=== PATIENT | female | born 1960 | race Caucasian/White ===

== ENCOUNTER 2020-09-01 10:38 | Emergency (ER) | payer BC ==
[2020-09-01] MEDS ORDERED: MEDROL DOSEPAK 24 MG PO (13:32)
[2020-09-01] MEDS ORDERED: NAPROXEN500 MG PO (13:32)
[2020-09-01] MEDS ORDERED: NORFLEX 100 MG100 MG PO (13:32)
== END 2020-09-01 13:45 | disposition home or self-care (01) ==
LOC: ER1 10:38
DX: M51.36 Other intervertebral disc degeneration, lumbar region (principal); I10 Essential (primary) hypertension; Z88.0 Allergy status to penicillin
CPT/HCPCS: 72131; 99283

== ENCOUNTER 2020-09-26 17:49 | Emergency (ER) | payer BC ==
[~2020-09-26 17:49] MED LIST: MEDROL DOSEPAK 24 MG PO; NAPROXEN500 MG PO; NORFLEX 100 MG100 MG PO
[2020-09-26 21:27] LABS: HEMOGLOBIN 12.4 gm/dl (12.3-15.3); RED BLOOD COUNT 4.22 M/UL (4.00-5.10); WHITE BLOOD COUNT 4.9 K/UL (4.5-11.0)
[2020-09-27] MEDS ORDERED: XARELTO 15 MG T15 MG PO (13:21)
== END 2020-09-26 22:35 | disposition home or self-care (01) ==
LOC: ER1 17:49
PROVIDERS: Physician Assistant Medical
DX: M79.661 Pain in right lower leg (principal); R79.1 Abnormal coagulation profile; I10 Essential (primary) hypertension; Z88.0 Allergy status to penicillin
CPT/HCPCS: 80053; 85025; 85379; 85610; 96372; 99283; J1650

== ENCOUNTER 2020-09-27 11:09 | Emergency (ER) | payer BC ==
[~2020-09-27 11:09] MED LIST changes: -XARELTO 15 MG T15 MG PO
[2020-09-27] MEDS ORDERED: XARELTO 15 MG T15 MG PO (13:21)
[2020-09-29 00:09] LABS: PROTEIN C-FUNCTIONAL 147 % (73-180); PROTEIN S-FUNCTIONAL 106 % (63-140)
== END 2020-09-27 13:49 | disposition home or self-care (01) ==
LOC: ER1 11:09
PROVIDERS: Physician Assistant
DX: I82.441 Acute embolism and thrombosis of right tibial vein (principal); I10 Essential (primary) hypertension; Z88.0 Allergy status to penicillin
CPT/HCPCS: 81241; 93971; 99283

== ENCOUNTER → 2020-09-27 | Outpatient (CLI) | payer BC ==
[~2020-09-27] MED LIST changes: +XARELTO 15 MG T15 MG PO
== END ==
LOC: US 10:16
DX: M79.661 Pain in right lower leg (principal); R79.89 Other specified abnormal findings of blood chemistry; I82.441 Acute embolism and thrombosis of right tibial vein
CPT/HCPCS: 93971

== ENCOUNTER → 2020-10-04 | Outpatient (CLI) | payer BC ==
[~2020-10-04] MED LIST changes: +XARELTO 15 MG T15 MG PO
== END ==
LOC: KOH-I 15:30 → EMI 15:38
DX: M54.9 Dorsalgia, unspecified (principal); M51.27 Other intervertebral disc displacement, lumbosacral region; M48.061 Spinal stenosis, lumbar region without neurogenic claudication
CPT/HCPCS: 72148

== ENCOUNTER → 2021-05-03 | Outpatient (CLI) | payer BC ==
[2021-05-03 10:27] LABS: BUN/CREATININE RATIO 18 (0-10)
== END ==
LOC: MRI 09:25
PROVIDERS: Internal Medicine
DX: M25.571 Pain in right ankle and joints of right foot (principal); M25.471 Effusion, right ankle; M05.9 Rheumatoid arthritis with rheumatoid factor, unspecified; R93.6 Abnormal findings on diagnostic imaging of limbs; D89.9 Disorder involving the immune mechanism, unspecified; R53.83 Other fatigue; Z51.81 Encounter for therapeutic drug level monitoring
CPT/HCPCS: 36415; 73723; 80053; A9577